=== PATIENT | male | born 2000 | race Caucasian/White ===

== ENCOUNTER 2025-02-07 08:06 | Outpatient (AMB) | payer SELFPAY ==
--- NOTE | 2025-02-07 08:12 | AM.OFFWIN_ITS ---
Intake Vital Signs 02/07/25 08:13 Height 5 ft 10 in Weight 122 lb BMI 17.5 BP 118/64 Blood Pressure Location Rt brachial Position Sitting Pulse 102 H Pulse Source Pulse Oximeter Temp 98.0 F Temp Source Oral Pulse Oximetry (%) 98 Oxygen Delivery Method Room Air Intake Visit Reasons: EP Severe Diarrhea Intake Note: pt presents with severe diarrhea with lower abdominal cramping for a few days, last bout last night. Allergies No Known Allergies Allergy (Verified 02/07/25 08:14) Do you need a note to return to daycare/school/sports/work: No HPI HPI Comments History of Present Illness Details History of Present Illness - The patient is a 24-year-old male pres enting with acute diarrhea. - The diarrhea began three to four days ago, characterized by watery and foul- smelling stools without blood or mucus. - He has diarrhea with every thing he ea ts. - Has no allergies to milk or gluten. - No fever, chills, vomiting, or nausea are present, and the patient reports abdominal discomfort and slight pain. - Recent dietary intake includes analia r foods, with no new allergies or medica tions reported. - He states that he did not eat out of t he ordinary besides ordering out for wings over the weekend and eating his grandmother's lasagna which was undercooked. - He has no recent illness, travel or an tibiotic use. - He denies melena. Physical Exam General: Cooperative, healthy appearing, comfortable, no acute distress and well developed Respiratory: Normal respiratory effort and able to speak in complete sentences. Clear to auscultation bilaterally Cardiovascular: Regular rate and rhythm. Normal S1 and S2 GI: Normal to inspection. Soft to palpation and nontender, non-distended. Hypoactive bowel sounds. No TTP. No guarding or rebound tenderness noted. Skin: No rashes or lesions noted Patient was informed and verbally consented to the use of an ambient scribe for clinic note documentation during this visit. Review of Systems Const All systems reviewed & are unremarkable except as noted in HPI and below Physical Exam Vital Signs: Last Vital Signs Temp 98.0 F 02/07/25 08:13 Pulse 102 H 02/07/25 08:13 BP 118/64 02/07/25 08:13 Pulse Ox 98 02/07/25 08:13 Oxygen Delivery Method Room Air 02/07/25 08:13 BMI result Body Mass Index 17.5 Assessment & Plan Assessment & Plan (1) Diarrhea: Code(s): R19.7 - Diarrhea, unspecified Qualifiers: Diarrhea type: unspecified type Qualified Code(s): R19.7 - Diarrhea, unspecified Plan Most likely gastroenteritis vs viral illness vs food poisoning Plan - Conduct stool cultures to determine bacterial involvement. - Implement the BRAT diet and maintain hydration with appropriate fluids. - Consider gastroenterology referral if symptoms do not improve. Orders: Orders H pylori Ag Stool Today R19.7 - Diarrhea, unspecified CDiff Gene PCR Today R19.7 - Diarrhea, unspecified GI Panel Today R19.7 - Diarrhea, unspecified Coding Level of Care Code New Pt Level 4 (54463) Diagnoses Diarrhea, unspecified type R19.7 Diarrhea type: unspecified type
--- OUTSIDE RECORDS SUMMARY | 2025-02-07 08:12 | XMS_ITS | Encounter Summary ---
Author Organization [facility] Address [address] [place], [place] [id number] Phone Care Team Providers Care Die Casting Machine Operator Name Role Phone Rafael Florian MD Primary Care Provider Encounter Details Date Type Department Care Team (Late st Contact Info) Description 10/26/2010 Conversion Encounter [address] [place] [address] Social History Tobacco Use Types Packs/Day Years Used Date Smoking Tobacco: Never Assessed Sex and Gender Information Value Date Recorded Sex Assigned at Not on file Legal Sex Male 6:41 PM EDT Gender Identity Not on file Sexual Orientation Not on file documented as of this encounter Plan of Treatment Not on file documented as of this encounter Visit Diagnoses Not on filedocumented in this encounter Care Teams Die Casting Machine Operator Relationship Specialty Start Date End Date Raafel Florian MD [address] [place] [address] [place] [address] PCP - General 10/22/17 documented as of this encounter
[2025-02-07 08:13] VITALS: BP 118/64; PULSE 102; TEMP 36.7; O2SAT 98; BMI 17.5
== END 2025-02-07 08:50 | disposition home or self-care (01) ==
PROVIDERS: Visit Provider Physician Assistant Medical
DX: R19.7 Diarrhea, unspecified (principal)

== ENCOUNTER → 2025-02-07 08:06 | Outpatient (BNVA) | payer SELFPAY | DX: R19.7 Diarrhea, unspecified (principal) | CPT/HCPCS: 99202 ==

== ENCOUNTER 2025-02-13 14:15 | Outpatient (REF) | payer SELFPAY ==
--- OUTSIDE RECORDS SUMMARY | 2025-02-13 14:18 | XMS_ITS | Encounter Summary ---
Author Organization [facility] Address [address] [place], [place] [id number] Phone Care Team Providers Care Dance Costume Designer Name Role Phone Rafael Florian MD Primary Care Provider [phone] Encounter Details Date Type Department Care Team (Late st Contact Info) Description 10/26/2010 Conversion Encounter [address] [place] [address] Social History Tobacco Use Types Packs/Day Years [...] on filedocumented in this encounter Care Teams Dance Costume Designer Relationship Specialty Start Date End Date Rafael Florian MD [address] [place] [address] [place] [address] PCP - General 10/22/17 documented as of this encounter
--- OUTSIDE RECORDS SUMMARY | 2025-02-13 14:18 | XMS_ITS | Clinical Summary ---
Author Organization [facility] Address [address] [place] [phone] Phone Care Team Providers Care Hand Chain Maker Name Role Phone Rafael Florian MD Primary Care Provider [phone] Allergies No known active allergies Medications No known medications Active Problems Problem Noted Date Diagnosed Date Well adult exam 12/30/2017 Screening for iron deficiency anemia 12/30/2017 Amblyopia of eye, right 12/30/2017 Immunizations Immunization Administration Dates Next Due DTaP 5 02/19/2005, 1,05/16/2000, 000,1999 Hep B, ped/adol 08/28/2000,1999,1999 Hib (PRP-T) 08/28/2000, 1,05/16/2000, 000 IPV 02/19/2005, 1,1999, 000 MMR 02/19/2005,05/16/2000 Meningococcal Conj (Menactra) MCV4P 01/06/2018 Pneumococcal Conjugate 07/17/2000,05/16/2000 Tdap 01/23/2012 Varicella 07/30/2011,05/16/2000 Family History Medical History Relation Name Comments Obesity Father Johnathon No Known Problems Sister Summer Relation Name Status Comments Father Johnathon Alive Mother Cathi Alive Sister Summer Alive Social History Tobacco Use Types Packs/Day Years Used Date Smoking Tobacco: Never Smokeless Tobacco: Never Tobacco Cessation:Counseling Given: No Comments:Never Smoker Alcohol Use Standard Drinks/Week Comments No 0 (1 standard drink = 0.6 oz pur e alcohol) Sex and Gender Information Value Date Recorded Sex Assigned at Not on file Legal Sex Male 6:41 PM EDT Gender Identity Not on file Sexual Orientation Not on file Last Filed Vital Signs Vital Sign Reading Time Taken Comments Blood Pressure 114/68 01/01/2019 2:05 PM EDT Pulse 80 01/01/2019 2:05 PM EDT Temperature 37.1 C (98.8 F) 01/01/2019 2:05 PM EDT Respiratory Rate - - Oxygen Saturation - - Inhaled Oxygen Concentration - - Weight 52.9 kg (116 lb 9.6 oz) 01/01/2019 2:05 P M EDT Height 175.6 cm (5' 9.15 ) 01/01/2019 2:05 PM ED T Body Mass Index 17.14 01/01/2019 2:05 PM EDT Plan of Treatment Health Maintenance Due Date Last Done Comments HPV Vaccines (1 - Male 3-dose series) 2014 DTaP,Tdap,and Td Vaccines (7 - Td or Tdap) 01/22/2022 01/23/2012, 02/19/2005, 10/30/2000, Additional history exists COVID-19 Vaccine ( season) 2024 Influenza Vaccines (#1) 2025 Pneumococcal Vaccine Completed 07/17/2000, 05/16/20 HIB Vaccines Completed 08/28/2000, 06/2000, 05/16/2000, Additional history exists Hepatitis B Vaccines Completed 08/28/2000, 1999, 1999 IPV Vaccines Completed 02/19/2005, 10/14, 1999, Additional history exists MMR Vaccines Completed 02/19/2005, 05/16/2000 Varicella Vaccines Completed 07/30/2011, 05/16/2000 Meningococcal Vaccine Completed 01/06/2018 Hepatitis A Vaccines Aged Out No long er eligible based on patient's age to complete this topic Men B Vaccine Aged Out No longer elig ible based on patient's age to complete this topic Insurance [id number] PPO [facility] NON PCC Care Teams Hand Chain Maker Relationship Specialty Start Date End Date Rafael Florian MD [address] [facility] [place] [address] PCP - General 10/22/17
[2025-02-13 16:28] LABS: CDiff Gene PCR NEGATIVE (Negative)
[2025-02-14 08:10] LABS: E. coli EAEC Not Detected (Not Detect.); E. coli EPEC Not Detected (Not Detect.); E. coli ETEC Not Detected (Not Detect.); E. coli STEC Not Detected (Not Detect.); Shigella sp./EIEC Not Detected (Not Detect.)
== END 2025-02-13 14:16 | disposition home or self-care (01) ==
LOC: HO.10HDL 14:15
PROVIDERS: Visit Provider Physician Assistant Medical
DX: R19.7 Diarrhea, unspecified (principal)
CPT/HCPCS: 87338; 87493; 87507